=== PATIENT | female | born 1955 | race Two or more races ===

== ENCOUNTER → 2018-08-08 | Outpatient (CLI) | payer BC ==
[~2018-08-08] MED LIST: CELEBREX; CINN500C12 PO; ESTR-1 PO; FISH OIL1 CAP PO; [UNRECOGNIZED DRUG - CODE] PO; [UNRECOGNIZED DRUG - OTHER]
--- NOTE | 2018-08-08 13:39 | RADIOLOGY IMAGING REPORT ---
FACILITY: [facility] PATIENT NAME: LAURIE BOSWELL : [id number] MR: [id number] V: [id number] EXAM DATE: ORDERING PHYSICIAN: YOVANNY STRANGE TECHNOLOGIST: Nathalie Timmons PROCEDURE:BILATERAL DIGITAL SCREENING MAMMOGRAM WITH CAD ASSISTED INTERPRETATION & 3D TOMOSYNTHESIS COMPARISON:Prior mammograms 08/05/17, 08/04/16. INDICATIONS:SCREENING FAMILY HISTORY OF BREAST CANCER. FINDINGS: Scattered fibroglandular tissue. Multiple bilateral round benign microcalcifications are unchanged. No suspicious mass, microcalcification or architectural distortion. No change compared to priors. DIAGNOSTIC CATEGORY 1--NEGATIVE. RECOMMENDATIONS: ROUTINE MAMMOGRAM AND CLINICAL EVALUATION 1 YR. IMPRESSION: BIRADS 1: Negative. Normal exam. Dictated by: Leandro Bender on 08/08/2018 at 11:33 Transcribed by: HERNANDO on 08/08/2018 at 13:23 Approved by: Leandro Bender on 08/08/2018 at 13:38 [facility]
--- NOTE | 2018-08-08 14:15 | RADIOLOGY IMAGING REPORT ---
FACILITY: [facility] PATIENT NAME: Cristy Patel : 1955 MR: [id number] V: [id number] EXAM DATE: ORDERING PHYSICIAN: YOVANNY STRANGE TECHNOLOGIST: Location: [facility] - [place] Patient: Cristy Patel : 1955 Visit/Account:[id number] Date of Sevice: 08/08/2018 CHEST PA AND LAT Additional pertinent History: Chest pain COMPARISON STUDIES: none FINDINGS: Support lines and catheters: None Lungs and Pleura: Lung mahan well expanded with no infiltrates or consolidations. No parenchymal ma ss lesions are seen. There are no effusions Heart and vasculature: Negative. Agatha and Mediastinum: Negative. Bones and Chest wall: Mild scoliotic curvature of the thoracic spine maximally convex to the right a t the T8 level. Upper Abdomen: Negative. IMPRESSION: 1. Normal chest Report Dictated By: Donte Cash MD at 08/08/2018 2:08 PM Report E-Signed By: Donte Cash MD at 08/08/2018 2:10 PM WSN:[email or web address]
== END ==
LOC: MAMO 01:18
PROVIDERS: ATTEND Family Medicine
DX: Z12.31 Encounter for screening mammogram for malignant neoplasm of breast (principal); M41.34 Thoracogenic scoliosis, thoracic region; R92.0 Mammographic microcalcification found on diagnostic imaging of breast; Z80.3 Family history of malignant neoplasm of breast
CPT/HCPCS: 71046; 77063; 77067

== ENCOUNTER → 2018-10-04 | Outpatient (CLI) | payer BC | LOC: RESP 12:27 | PROVIDERS: ATTEND Family Medicine | DX: R06.02 Shortness of breath (principal) | CPT/HCPCS: 94060 ==

== ENCOUNTER → 2019-03-15 | Outpatient (CLI) | payer BC ==
--- NOTE | 2019-03-15 12:04 | RADIOLOGY IMAGING REPORT ---
[place] [facility] [place] NAME: Cristy Patel : 1955 MR: [id number] V: [id number] EXAM DATE: ORDERING PHYSICIAN: YOVANNY STRANGE TECHNOLOGIST: Location: [facility] - [place] Patient: Cristy Patel : 1955 Visit/Account:[id number] Date of Sevice: 03/15/2019 SHOULDER MIN 2 VIEWS LEFT Indication: Left shoulder pain. Comparison: None Findings: The left clavicle, scapula, and proximal humerus are intact and demonstrate normal alignmen t. Visualized left ribs are normal. IMPRESSION: Normal left shoulder radiograph. Report Dictated By: Frandy Jeffrey at 03/15/2019 12:00 PM Report E-Signed By: Frandy Jeffrey at 03/15/2019 12:01 PM WSN:[email or web address]
--- NOTE | 2019-03-15 12:05 | RADIOLOGY IMAGING REPORT ---
[facility] PATIENT NAME: Cristy Patel : 1955 MR: [id number] V: [id number] EXAM DATE: ORDERING PHYSICIAN: YOVANNY STRANGE TECHNOLOGIST: Location: [facility] - [place] Patient: Cristy Patel : 1955 Visit/Account:[id number] Date of Sevice: 03/15/2019 HUMERUS LEFT Indication: Left shoulder and humerus pain due to coughing, Comparison: None Findings: Left humerus is intact and demonstrates normal mineralization. The soft tissues are normal . IMPRESSION: Normal left humerus radiograph. Report Dictated By: Frandy Jeffrey at 03/15/2019 11:59 AM Report E-Signed By: Frandy Jeffrey at 03/15/2019 12:00 PM WSN:[email or web address]
--- NOTE | 2019-03-15 12:06 | RADIOLOGY IMAGING REPORT ---
FACILITY: [facility] - [place] PATIENT NAME: Cristy Patel : 1955 MR: [id number] V: [id number] EXAM DATE: ORDERING PHYSICIAN: YOVANNY STRANGE TECHNOLOGIST: Location: [facility] Patient: Cristy Patel : 1955 Visit/Account:[id number] Date of Sevice: 03/15/2019 KNEE 3 VIEW RIGHT Indication: Right knee pain. Comparison: None Findings: Distal femur, proximal tibia and fibula, the patella demonstrate normal mineralization and alignment. Soft tissues are unremarkable. IMPRESSION: Normal right knee radiograph. Report Dictated By: Frandy Jeffrey at 03/15/2019 12:00 PM Report E-Signed By: Frandy Jeffrey at 03/15/2019 12:00 PM WSN:[email or web address]
== END ==
LOC: RAD 10:08
PROVIDERS: ATTEND Family Medicine
DX: M25.512 Pain in left shoulder (principal); M25.561 Pain in right knee